=== PATIENT | male | born 2000 | race American Indian/Alaskan Native ===

== ENCOUNTER 2023-05-28 17:13 | Emergency (ER) | payer OTHER, SELFPAY ==
[2023-05-28] VITALS (13 sets, daily range): BP systolic 125–140; BP diastolic 78–95; PULSE 62–88; RESP 18; TEMP 36.7; O2SAT 95–100; BMI 37.1
[2023-05-28 18:13] LABS: Add Manual Diff / Slide Review NO; Basophils Absolute Auto 100 /uL (0-100); Basophils Percent Auto 0.7 % (0-2); Eosinophils Absolute Auto 300 /uL (0-450); Eosinophils Percent Auto 3.3 % (2-4); Hematocrit 45.1 % (41-53); Hemoglobin 15.1 g/dL (13.5-17.5); Lymphocytes Absolute Auto 3100 /uL (1100-4500); Lymphocytes Percent Auto 37.7 % (25-40); Mean Corpuscular HGB Conc 33.4 % (30-36); Mean Corpuscular Hemoglobin 29.4 PG (26-34); Mean Corpuscular Volume 87.9 fL (80-100); Monocytes Absolute Auto 1000 /uL (0-900); Neutrophils Absolute Auto 3800 /uL (1500-7000); Neutrophils Percent Auto 46.3 % (50-75); Platelet Count 358 X10^3/uL (150-400); Red Blood Cell Count 5.13 X10^6/uL (4.5-5.9); Red Cell Distribution Width 14.1 % (11.6-14.8); White Blood Cell Count 8.2 X10^3/uL (4.5-11.0)
[2023-05-28 18:15] LABS: Alanine Aminotransferase 109 IU/L (<50); Albumin 4.7 g/dL (3.5-5.0); Albumin Globulin Ratio 1.3 (1.0-2.8); Alkaline Phosphatase 87 U/L (38-126); Aspartate Aminotransferase 52 IU/L (17-59); BUN Creatinine Ratio 15.7 (6-22); Bilirubin Total 0.6 mg/dL (0.2-1.3); Blood Urea Nitrogen 17 mg/dL (9-20); Calcium 9.1 mg/dL (8.4-10.2); Carbon Dioxide 27 mmol/L (22-32); Chloride 103 mmol/L (98-107); Estimated Glomerular Filt Rate > 60 mL/min (>60); Globulin 3.7 g/dL (1.7-4.1); Glucose 103 mg/dL (70-100); HEMOLYSIS 21 (0-50); Lipase 88 U/L (23-300); Potassium 3.8 mmol/L (3.4-5.1); Sodium 139 mmol/L (137-145); Total Protein 8.4 g/dL (6.3-8.2)
--- NOTE | 2023-05-28 19:11 | DI.CT.S_ITS ---
PROCEDURE: CT KIDNEY URETER BLADDER (KUB) INDICATIONS: RLQ pain TECHNIQUE: Axial sections were acquired from the lung bases to the pubic symphysis. Coronal and sagittal reformats were performed. For radiation dose reduction, the following was used: automated exposure control, adjustment of mA and/or kV according to patient size. COMPARISON: [facility], CT, CT ABDOMEN PELVIS WITH CONTRAST, 12/10/2022, 15:09. FINDINGS: Image quality: Excellent. Lung bases: Unremarkable. Small hiatal hernia. Heart: No significant findings. URINARY: Right Kidney: Mild hydronephrosis. Right Ureter: There is a 2 mm stone in the mid right ureter. Mild periureteral stranding proximal to the stone. Left Kidney: No stones or hydronephrosis. Left Ureter: No hydroureter. Bladder: Normal wall thickness. No stones. ABDOMEN: Liver: Mild hepatomegaly. Severe hepatic steatosis. Gallbladder: Unremarkable. Biliary ducts: Unremarkable. Pancreas: Unremarkable. Spleen: Unremarkable. Adrenal Glands: Unremarkable. Stomach and Bowel: Stomach, small bowel loops, and colon are normal in caliber. There is increased submucosal fat content throughout the colon. Colon is not adequately distended. Peritoneum: No abnormal intraperitoneal fluid. No free air. Ventral Wall: No hernia. Abdominal Nodes: No enlarged retroperitoneal or mesenteric lymph nodes. Vessels: Aorta and inferior vena cava are normal in size. PELVIS: Pelvic Organs: Unremarkable. Pelvic Nodes: Unremarkable. Miscellaneous: No inguinal hernias are seen. Bones: Unremarkable. IMPRESSION: 1. A 2 mm obstructive stone in right mid ureter. 2. Mild hepatomegaly and severe hepatic steatosis. 3. Diffusely submucosal fat content in colon may be secondary to chronic inflammatory change. Recommend clinical correlation. Dictated by: Vani Vallejo M.D. on 05/28/2023 at 20:43 Approved by: Vani Vallejo M.D. on 05/28/2023 at 20:47
[2023-05-28] MEDS: KETOROLAC 30 MG/ML VIAL 15 MG IV (19:18)
--- NOTE | 2023-05-28 21:31 | ED_ITS ---
HPI - Male Genitourinary General Chief complaint: Abdominal Pain Stated complaint: severe abd pain Time Seen by Provider: 05/28/23 21:23 Source: patient Mode of arrival: Ambulatory History of Present Illness HPI Narrative: Patient has sudden onset of right flank pain 9:00 a.m. today. Has been waxing waning with pain. Nausea but no vomiting. No sweating. No urinary urgency. Did notice dark urine. No frequency. No abdominal pain. No testicular pain. Patient in no distress at this time. No prior history of kidney stone. Related Data Home Medications Medication Instructions Recorded Confirmed albuterol sulfate 90 mcg/actuation ##0 01/01/18 aerosol inhaler (Proventil HFA) benzonatate 200 mg capsule ##0 01/01/18 ondansetron 8 mg disintegrating ##0 01/01/18 tablet (Zofran ODT) oseltamivir 75 mg capsule (Tamiflu) ##0 01/01/18 Previous Rx's Medication Instructions Recorded citalopram 20 mg tablet 20 mg PO QDAY #30 mg 08/21/16 citalopram 20 mg tablet 20 mg PO QDAY #30 mg 02/11/17 citalopram 20 mg tablet 20 mg PO QDAY #30 mg 07/14/17 hydrocodone 5 mg-acetaminophen 325 1 tab PO Q6H PRN pain #16 tabs 05/28/23 mg tablet ondansetron 4 mg disintegrating 4 mg PO Q8H PRN nausea and 05/28/23 tablet vomiting #10 tabs tamsulosin 0.4 mg capsule 0.4 mg PO DAILY #7 caps 05/28/23 Allergies Allergy/AdvReac Type Severity Reaction Status Date / Time No Known Drug Allergies Allergy Verified 05/28/23 17:35 Review of Systems Review of Systems Narrative: GENERAL: negative chills, fatigue, malaise, fever, sweats. HEENT: negative sinus pain, ear pain, sore throat RESPIRATORY: negative dyspnea, cough CARDIOVASCULAR: negative chest pain, palpitations GASTROINTESTINAL: Positive nausea, negative vomiting, abdominal pain, positive flank pain : negative dysuria, frequency, hematuria MUSCULOSKELETAL: negative muscle or bony pain SKIN: negative rash, skin lesions NEUROLOGIC: negative weakness, numbness ROS Unobtainable: All systems reviewed & are unremarkable except as noted in HPI and below Patient History Social History Smoking Status: Former smoker Smoking Status: Former smoker alcohol intake frequency: a few times a week Substance Use Type: marijuana Exam Narrative Exam Narrative: GENERAL: in no distress, not toxic not dyspneic HEAD: Normocephalic. EYES: Pupils equal round ENT: Mucous membranes moist. NECK: Trachea midline. CARDIOVASCULAR: Regular rate and rhythm without murmurs RESPIRATORY: Clear to auscultation. Breath sounds equal bilaterally. No wheezes, rales, or rhonchi. GASTROINTESTINAL: Abdomen soft, non-tender abdomen is soft flat nontender no peritoneal signs bowel sounds are present. No CVA tenderness. No pain out of portion to exam. EXTREMITIES: No gross deformities. BACK: No flank tenderness. NEURO: AOx4. SKIN: Warm and dry PSYCH: Not anxious, is cooperative Initial Vital Signs Initial Vital Signs: Vital Signs Temperature 98.0 F 05/28/23 17:29 Pulse Rate 69 05/28/23 17:29 Respiratory Rate 18 05/28/23 17:29 Blood Pressure 139/95 H 05/28/23 17:29 Pulse Oximetry 100 05/28/23 17:29 Oxygen Delivery Method Room Air 05/28/23 17:29 Course Orders Ordered: Discontinued Medications Hydrocodone Bitart/Acetaminophen (Hydrocodone/Acet 5/325 Prepack) 1 bottle MISC SEEINSTR ONE Stop: 05/28/23 21:32 Last Admin: 05/28/23 21:36 Dose: 1 bottle Documented By: BUBBA Ketorolac Tromethamine (Ketorolac 30 Mg/Ml Vial) 15 mg IV NOW ONE Stop: 05/28/23 19:13 Last Admin: 05/28/23 19:18 Dose: 15 mg Documented By: RANDI Morphine Sulfate (Morphine 4 Mg/Ml Inj) 4 mg IV NOW ONE Stop: 05/28/23 21:30 Last Admin: 05/28/23 21:36 Dose: 4 mg Documented By: BUBBA Ondansetron HCl (Ondansetron 4 Mg/2 Ml Inj) 4 mg IV NOW PRN PRN Reason: Nausea And Vomiting Last Admin: 05/28/23 21:37 Dose: 4 mg Documented By: BUBBA Ondansetron HCl (Ondansetron 4 Mg Odt Prepack) 1 bottle MISC SEEINSTR ONE Stop: 05/28/23 21:32 Last Admin: 05/28/23 21:36 Dose: 1 bottle Documented By: BUBBA Tamsulosin HCl (Tamsulosin 0.4 Mg Capsule) 0.4 mg PO NOW ONE Stop: 05/28/23 21:31 Last Admin: 05/28/23 21:36 Dose: 0.4 mg Documented By: BUBBA Vital Signs Vital signs: Vital Signs - 8 hr 05/28/23 20:30 05/28/23 21:00 05/28/23 21:29 Pulse Rate 85 77 71 Respiratory Rate 18 18 Blood Pressure Pulse Oximetry 97 97 97 Oxygen Delivery Method Room Air 05/28/23 21:30 05/28/23 21:30 05/28/23 21:45 Pulse Rate 65 83 Respiratory Rate Blood Pressure 125/89 Pulse Oximetry 96 96 Oxygen Delivery Method 05/28/23 21:46 05/28/23 21:46 05/28/23 21:50 Pulse Rate 84 Respiratory Rate Blood Pressure 140/88 138/88 Pulse Oximetry 96 Oxygen Delivery Method 05/28/23 21:50 05/28/23 22:00 05/28/23 22:00 Pulse Rate 88 85 Respiratory Rate Blood Pressure 136/78 Pulse Oximetry 96 95 Oxygen Delivery Method Room Air Room Air 05/28/23 22:10 05/28/23 22:10 Pulse Rate 85 Respiratory Rate Blood Pressure 140/87 Pulse Oximetry 96 Oxygen Delivery Method Room Air MDM - Male Genitourinary Lab Data 05/28/23 17:40 05/28/23 17:40 Labs: Lab Results 05/28/23 05/28/23 Range/Units 17:40 17:40 WBC 8.2 (4.5-11.0) X10^3/uL RBC 5.13 (4.5-5.9) X10^6/uL Hgb 15.1 (13.5-17.5) g/dL Hct 45.1 (41-53) % MCV 87.9 (80-100) fL MCH 29.4 (26-34) PG MCHC 33.4 (30-36) % RDW 14.1 (11.6-14.8) % Plt Count 358 (150-400) X10^3/uL Neut % (Auto) 46.3 L (50-75) % Lymph % (Auto) 37.7 (25-40) % [place] % (Auto) 12.0 (3-14) % Eos % (Auto) 3.3 (2-4) % Baso % (Auto) 0.7 (0-2) % Neut # (Auto) 3800 (9458-3977) /uL Lymph # (Auto) 3100 (9321-9799) /uL [place] # (Auto) 1000 H (0-900) /uL Eos # (Auto) 300 (0-450) /uL Baso # (Auto) 100 (0-100) /uL Sodium 139 (137-145) mmol/L Potassium 3.8 (3.4-5.1) mmol/L Chloride 103 (98-107) mmol/L Carbon Dioxide 27 (22-32) mmol/L BUN 17 (9-20) mg/dL Creatinine 1.08 (0.66-1.25) mg/dL Estimated GFR > 60 (>60) mL/min BUN/Creatinine Ratio 15.7 (6-22) Glucose 103 H (70-100) mg/dL Calcium 9.1 (8.4-10.2) mg/dL Total Bilirubin 0.6 (0.2-1.3) mg/dL AST 52 (17-59) IU/L ALT 109 H (<50) IU/L Alkaline Phosphatase 87 (38-126) U/L Total Protein 8.4 H (6.3-8.2) g/dL Albumin 4.7 (3.5-5.0) g/dL Globulin 3.7 (1.7-4.1) g/dL Albumin/Globulin Ratio 1.3 (1.0-2.8) Lipase 88 (23-300) U/L Urine Dip Bedside Urine Glucose Negative Bedside Urine Bilirubin - Negative Bedside Urine Ketone +/- 5 Urine Specific [place] 1.020 Bedside Urine Occult Blood +++ Bedside Urine pH 6.0 Bedside Urine Protein + 30 Bedside Urine Urobilinogen - Negative Bedside Urine Nitrite - Negative Bedside Urine Leukocytes - Negative Esterase MDM Narrative Medical decision making narrative: Patient has sudden onset of right flank pain 9:00 a.m. today. Has been waxing waning with pain. Nausea but no vomiting. No sweating. No urinary urgency. Did notice dark urine. No frequency. No abdominal pain. No testicular pain. Patient in no distress at this time. No prior history of kidney stone. After history and exam CBC CMP urinalysis CT abdomen pelvis Toradol Zofran morphine Flomax [facility] CC: Flank pain Complicating co-morbidities: None Data collected from: Patient and girlfriend Medical records reviewed: No recent visits for this complaint Differential considered: Includes but not limited to pyelonephritis kidney stone cholecystitis UTI Exam documented above, pertinent findings include: Nontender flank nontender abdomen Lab Test results independently reviewed as above. Pertinent findings: WBC 8.2 BUN 17 creatinine 1.08, urinalysis negative leukocyte negative nitrate positive blood Independently reviewed EKG done required Imaging studies independently reviewed: CT abdomen pelvis 2 mm obstructive stone in right mid ureter. Consultations: None required at this time Treatments: Toradol Zofran morphine Flomax Re-evaluations: Patient pain is controlled. Return precautions reviewed with patient and girlfriend. She is driving. Exam and laboratories studies are reassuring. As well as imaging. Referral for Urology and primary care given. He desires discharge home. Return precautions reviewed with him. They desire discharge home Discussion: Appropriate for discharge home. Exam and imaging and laboratory studies are reassuring. Pain is controlled. No IV fluids indicated at this time. Patient is urinating. Renal functions unremarkable. Return precautions reviewed with him. He desires discharge home Diagnosis: Ureteral stone Discharge Plan Departure Patient Disposition: Home Clinical Impression: Right ureteral stone Instructions: DI for Kidney Stones Activity Restrictions/Additional Instructions: No driving or operating machinery tonight or when taking prescribed pain me dication. Please call provided urology office with Dr. Lincoln in the morning for office re-evaluation in a week. At this time laboratory studies and imaging are reassuring for your kidney stone, it should be able to past. Return if worse if any questions or concerns if any fever or chills. Call provided primary care referral phone number to establish family doctor. Call [phone]. Keep well hydrated. Prescriptions: New hydrocodone-acetaminophen 5-325 mg tablet 1 tab PO Q6H PRN (Reason: pain) Qty: 16 0RF tamsulosin 0.4 mg capsule 0.4 mg PO DAILY Qty: 7 0RF ondansetron 4 mg tablet,disintegrating 4 mg PO Q8H PRN (Reason: nausea and vomiting) Qty: 10 0RF No Action citalopram 20 MG tablet 20 mg PO QDAY Qty: 30 1RF citalopram 20 MG tablet 20 mg PO QDAY Qty: 30 0RF citalopram 20 MG tablet 20 mg PO QDAY Qty: 30 1RF oseltamivir [Tamiflu] 75 MG capsule Qty: 0 benzonatate 200 MG capsule Qty: 0 ondansetron [Zofran ODT] 8 MG tablet,disintegrating Qty: 0 albuterol sulfate [Proventil HFA] 90 MCG/PUFF HFA aerosol inhaler Qty: 0 Referrals: Alex Lincoln MD [Physician] - Mary Anne Giles MD [Primary Care Provider] - Stand Alone Forms: Patient Portal/API, Work Release Note
[2023-05-28] MEDS: TAMSULOSIN 0.4 MG CAPSULE PO (21:36)
[2023-05-28] MEDS: HYDROCODONE/ACET 5/325 PREPACK 1 BOTTLE MISC (21:36)
[2023-05-28] MEDS: MORPHINE 4 MG/ML INJ IV (21:36)
[2023-05-28] MEDS: ONDANSETRON 4 MG ODT PREPACK 1 BOTTLE MISC (21:36)
[2023-05-28] MEDS: ONDANSETRON 4 MG/2 ML INJ IV (21:37)
== END 2023-05-28 22:21 | disposition home or self-care (01) ==
PROVIDERS: Emergency Medicine; Emergency Provider Emergency Medicine; Family Provider Pediatrics; PCP Pediatrics
DX: N20.1 Calculus of ureter (principal)
CPT/HCPCS: 36415; 74176; 80053; 81003; 83690; 85025; 96374; 96375; 99284; J1885; J2270; J2405